=== PATIENT | female | born 1990 | race Caucasian/White ===

== ENCOUNTER 2021-06-22 09:02 | Inpatient (IN) ==
[2021-06-22 10:21] LABS: Basophils % 0.3 %; Eosinophils # 0.1 K/mcL (0.0-0.6); Eosinophils % 0.7 %; Hematocrit 41.8 % (35.3-44.9); Hemoglobin 14.5 g/dL (11.5-15.4); Immature Granulocytes % 0.3 % (0-4); Lymphocytes # 1.4 K/mcL (0.6-4.6); Lymphocytes % 20.5 %; Mean Corpuscular HGB Conc 34.7 g/dL (31.6-35.5); Mean Corpuscular Hemoglobin 29.9 pg (28.0-33.3); Mean Corpuscular Volume 86.2 fL (83.0-100.0); Mean Platelet Volume 9.9 fL (9.4-12.4); Monocytes # 0.5 K/mcL (0.0-1.3); Monocytes % 6.7 %; Neutrophils # 4.8 K/mcL (1.6-8.9); Platelet Count 203 K/mcL (140-400); Red Blood Count 4.85 M/mcL (3.82-4.97); Red Cell Distribution Width 12.2 % (11.5-14.5); Segmented Neutrophils % 71.5 %; White Blood Count 6.7 K/mcL (4.3-11.1)
[2021-06-22] MEDS ORDERED: Acetaminophen 325 MG TABLET PO ONE (10:41)
[2021-06-22] MEDS ORDERED: 0.9 % Sodium Chloride 1,000 ML IV ONE (10:41)
[2021-06-22] MEDS ORDERED: Isovue-370 500 ML BOTTLE IVP ONE (10:42)
[2021-06-22 11:51] LABS: BUN/Creatinine Ratio 11 (6-26); Blood Urea Nitrogen 8 mg/dL (6-20); Calcium 9.4 mg/dL (8.6-10.3); Carbon Dioxide 22 mEq/L (23-29); Chloride 104 mEq/L (98-107); Glucose 93 mg/dL (70-105); Osmolality,Calculated 284 (280-300); Potassium 3.4 mEq/L (3.5-5.1); Sodium 138 mEq/L (136-145); eGFR For African Americans > 60 (> 60); eGFR For Non-African Americans > 60 (> 60)
[2021-06-22] MEDS ORDERED: *HR* Heparin 5,000 UNIT/ML VIAL IVP PRN (14:32)
[2021-06-22 14:58] LABS: INR 1.1; Prothrombin Time 12.4 Seconds (9.4-12.1)
[2021-06-22] MEDS: Heparin 25,000UNIT/250ML 1/2NS 25,000 UNIT/250 ML IV.SOLN IVC SCH (15:04)
[2021-06-22 15:17] LABS: Influenza A PCR Negative (Negative); Influenza B PCR Negative (Negative); Resp. Syncytial Virus PCR Negative (Negative)
[2021-06-22] MEDS ORDERED: Naloxone 0.4 MG/ML INJ IVP PRN (15:17)
[2021-06-22] MEDS ORDERED: Ibuprofen 400 MG TABLET PO PRN (15:17)
[2021-06-22] MEDS ORDERED: Acetaminophen 325 MG TABLET PO PRN (15:17)
[2021-06-22 15:18] LABS: Hematocrit 38.4 % (35.3-44.9); Hemoglobin 13.5 g/dL (11.5-15.4); Mean Corpuscular HGB Conc 35.2 g/dL (31.6-35.5); Mean Corpuscular Hemoglobin 30.5 pg (28.0-33.3); Mean Corpuscular Volume 86.7 fL (83.0-100.0); Platelet Count 192 K/mcL (140-400); Red Blood Count 4.43 M/mcL (3.82-4.97); Red Cell Distribution Width 12.2 % (11.5-14.5); White Blood Count 5.5 K/mcL (4.3-11.1)
[2021-06-22 15:25] LABS: Heparin anti-factor XA UFH < 0.04 IU/mL (0.30-0.70); INR 1.2; Prothrombin Time 13.3 Seconds (9.4-12.1)
[2021-06-22 16:11] LABS: SARS-CoV-2 by PCR (In House) Negative (Negative)
[2021-06-22] MEDS: Ampicillin/Sulbactam 1,500 MG in 0.9 % Sodium Chloride Mini Bag 100 ML IVPB SCH ×2 (20:15→23:42)
[2021-06-23] MEDS: *HR* OxyCODONE Immed Rel 5 MG TABLET PO PRN ×3 (03:08→18:47)
[2021-06-23 04:48] LABS: Basophils % 0.2 %; Hematocrit 36.5 % (35.3-44.9); Hemoglobin 12.6 g/dL (11.5-15.4); Immature Granulocytes % 0.2 % (0-4); Lymphocytes # 1.3 K/mcL (0.6-4.6); Mean Corpuscular HGB Conc 34.5 g/dL (31.6-35.5); Mean Corpuscular Hemoglobin 30.1 pg (28.0-33.3); Mean Corpuscular Volume 87.3 fL (83.0-100.0); Monocytes # 0.6 K/mcL (0.0-1.3); Monocytes % 6.8 %; Neutrophils # 6.2 K/mcL (1.6-8.9); Platelet Count 184 K/mcL (140-400); Red Blood Count 4.18 M/mcL (3.82-4.97); Red Cell Distribution Width 12.2 % (11.5-14.5); Segmented Neutrophils % 76.8 %; White Blood Count 8.1 K/mcL (4.3-11.1)
[2021-06-23 05:10] LABS: Carbon Dioxide 20 mEq/L (23-29); Chloride 105 mEq/L (98-107); Glucose 106 mg/dL (70-105); Potassium 3.4 mEq/L (3.5-5.1); Sodium 135 mEq/L (136-145); eGFR For African Americans > 60 (> 60); eGFR For Non-African Americans > 60 (> 60)
[2021-06-23 05:19] LABS: BUN/Creatinine Ratio 16 (6-26); Blood Urea Nitrogen 8 mg/dL (6-20); Calcium 8.4 mg/dL (8.6-10.3); Osmolality,Calculated 279 (280-300)
[2021-06-23] MEDS: Ampicillin/Sulbactam 1,500 MG in 0.9 % Sodium Chloride Mini Bag 100 ML IVPB SCH (05:21)
[2021-06-23] MEDS ORDERED: Morphine Sulfate 2 MG/ML SYRINGE IVP ONE (07:18)
[2021-06-23] MEDS: Ondansetron 4 MG/2 ML VIAL IVP PRN (07:43)
[2021-06-23] MEDS: Heparin 25,000UNIT/250ML 1/2NS 25,000 UNIT/250 ML IV.SOLN IVC SCH (11:20)
[2021-06-23] MEDS: Piperacillin/Tazobactam 3.375 GM in 0.9 % Sodium Chloride Mini Bag 100 ML IVPB SCH ×2 (11:43→20:11)
[2021-06-23] MEDS ORDERED: *HR* Heparin 5,000 UNIT/ML VIAL IVP PRN ×2 (11:44)
[2021-06-24] MEDS: *HR* OxyCODONE Immed Rel 5 MG TABLET PO PRN ×2 (01:16→08:14)
[2021-06-24] MEDS: Ondansetron 4 MG/2 ML VIAL IVP PRN ×3 (01:17→20:52)
[2021-06-24] MEDS: Piperacillin/Tazobactam 3.375 GM in 0.9 % Sodium Chloride Mini Bag 100 ML IVPB SCH ×3 (03:54→20:57)
[2021-06-24 05:35] LABS: Hematocrit 37.3 % (35.3-44.9); Hemoglobin 12.2 g/dL (11.5-15.4); Mean Corpuscular HGB Conc 32.7 g/dL (31.6-35.5); Mean Corpuscular Hemoglobin 29.4 pg (28.0-33.3); Mean Corpuscular Volume 89.9 fL (83.0-100.0); Platelet Count 187 K/mcL (140-400); Red Blood Count 4.15 M/mcL (3.82-4.97); Red Cell Distribution Width 12.4 % (11.5-14.5); White Blood Count 10.5 K/mcL (4.3-11.1)
[2021-06-24] MEDS: Heparin 25,000UNIT/250ML 1/2NS 25,000 UNIT/250 ML IV.SOLN IVC SCH (06:06)
[2021-06-24 06:22] LABS: BUN/Creatinine Ratio 14 (6-26); Blood Urea Nitrogen 9 mg/dL (6-20); Calcium 8.6 mg/dL (8.6-10.3); Carbon Dioxide 23 mEq/L (23-29); Chloride 101 mEq/L (98-107); Glucose 102 mg/dL (70-105); Osmolality,Calculated 277 (280-300); Potassium 3.4 mEq/L (3.5-5.1); Sodium 134 mEq/L (136-145); eGFR For African Americans > 60 (> 60); eGFR For Non-African Americans > 60 (> 60)
[2021-06-24] MEDS ORDERED: Vancomycin 1,500 MG/265 ML IV.SOLN IVPB SCH (09:00)
[2021-06-24] MEDS: *HR* OxyCODONE/APAP 5/325 TABLET PO SCH ×2 (11:30→17:47)
[2021-06-24] MEDS: *HR* Rivaroxaban 15 MG TABLET PO SCH ×2 (11:30→17:47)
[2021-06-25] MEDS: *HR* OxyCODONE/APAP 5/325 TABLET PO SCH ×4 (00:06→15:35)
[2021-06-25] MEDS: Piperacillin/Tazobactam 3.375 GM in 0.9 % Sodium Chloride Mini Bag 100 ML IVPB SCH (03:17)
[2021-06-25 07:02] LABS: Hematocrit 34.3 % (35.3-44.9); Hemoglobin 11.3 g/dL (11.5-15.4); Mean Corpuscular HGB Conc 32.9 g/dL (31.6-35.5); Mean Corpuscular Hemoglobin 29.6 pg (28.0-33.3); Mean Corpuscular Volume 89.8 fL (83.0-100.0); Platelet Count 214 K/mcL (140-400); Red Blood Count 3.82 M/mcL (3.82-4.97); Red Cell Distribution Width 12.4 % (11.5-14.5); White Blood Count 9.1 K/mcL (4.3-11.1)
[2021-06-25 07:25] LABS: BUN/Creatinine Ratio 19 (6-26); Blood Urea Nitrogen 11 mg/dL (6-20); Calcium 8.7 mg/dL (8.6-10.3); Carbon Dioxide 24 mEq/L (23-29); Chloride 103 mEq/L (98-107); Glucose 95 mg/dL (70-105); Osmolality,Calculated 281 (280-300); Potassium 3.8 mEq/L (3.5-5.1); Sodium 136 mEq/L (136-145); eGFR For African Americans > 60 (> 60); eGFR For Non-African Americans > 60 (> 60)
[2021-06-25] MEDS: *HR* Rivaroxaban 15 MG TABLET PO SCH ×2 (07:42→17:13)
[2021-06-25] MEDS ORDERED: Vancomycin 1,500 MG/265 ML IV.SOLN IVPB SCH (09:00)
[2021-06-25] MEDS: metroNIDAZOLE 500 MG TABLET PO SCH ×3 (09:53→21:17)
[2021-06-25] MEDS: levoFLOXacin 750 MG TABLET PO SCH (09:53)
[2021-06-25] MEDS: Ondansetron 4 MG/2 ML VIAL IVP PRN (13:03)
[2021-06-26] MEDS: *HR* OxyCODONE/APAP 5/325 TABLET PO SCH ×2 (00:26→06:40)
[2021-06-26 03:14] VITALS: TEMP 98; O2SAT 94
[2021-06-26 07:04] VITALS: BP 116/78; PULSE 82
[2021-06-26] MEDS: *HR* Rivaroxaban 15 MG TABLET PO SCH (09:24)
[2021-06-26] MEDS: levoFLOXacin 750 MG TABLET PO SCH (09:24)
[2021-06-26] MEDS: metroNIDAZOLE 500 MG TABLET PO SCH (09:24)
== END 2021-06-26 11:02 | disposition home or self-care (01) | DRG 175 ==
LOC: 3ANU 09:02 → EMEROOARM 09:02 → 3ANU 18:21
PROVIDERS: ADMIT Internal Medicine; ATTEND Internal Medicine